=== PATIENT | female | born 1955 | race Caucasian/White ===

== ENCOUNTER 2018-02-08 07:27 | Day surgery (SDC) | payer MEDICAID ==
[~2018-02-08 07:27] MED LIST: Bupivacaine 0.5% 50 ML MDV ONE; Lidocaine 1% with EPINEPHrine 1:100,000 50 ML MDV ONE; Midazolam 1 MG/ML 2 ML SDV ONE; Propofol 200 MG/20 ML SDV ONE; fentaNYL 100 MCG/2 ML SDV ONE
[2018-02-08] MEDS ORDERED: Sodium Chloride 0.9% 1,000 ML IV SCH (08:00)
[2018-02-08] MEDS ORDERED: ceFAZolin 2 GM in Premix Bag 1 BAG IV ONE (08:30)
[2018-02-08] MEDS ORDERED: hydrOXYzine HCl 100 MG/2 ML SDV IM ONE (10:26)
[2018-02-08] MEDS ORDERED: fentaNYL 100 MCG/2 ML SDV IVPUSH ONE (10:26)
--- NOTE | 2018-02-08 12:05 | OR ---
DATE OF PROCEDURE: 02/08/2018 PROCEDURE: Biopsy of left axillary mass, approximately 3 cm. COMPLICATIONS: None. AGENT LICENSING CLERK: None. ANESTHESIA: MAC/local. INDICATIONS: This is a pleasant 63-year-old female with a 5-mm left breast mass and a large axillary mass. The original plan was to biopsy the breast mass in conjunction with the axillary mass. Unfortunately, ultrasound was unable to locate the 5-mm mass. Therefore, this will be sent for stereotactic breast biopsy. Of note, no attempts or introduction of devices were introduced into the left breast. Therefore, the architecture of left breast was not distorted. DESCRIPTION OF PROCEDURE: The patient was placed in supine position. 11 megahertz ultrasound probe was used to interrogate the left breast. This 5-mm mass, that was described in previous ultrasound and mammogram, was unable to be definitively identified/verified. The semiconductor lab technician who performed this procedure was not the original semiconductor lab technician. Therefore, this could not be definitively verified. The left axillary mass was identified readily, and this was biopsied using core biopsy x2. This was performed by anesthetizing the skin and nicked with 11 blade, and the vacuum- assisted biopsy gun was introduced and fired through the medial and superior aspects of this. A clip was then placed within this axillary mass. Direct pressure was held for 10 minutes. Dermabond was applied. The patient tolerated the procedure well. Bravo Riojas MD /[id number]
== END 2018-02-08 10:35 | disposition home or self-care (01) ==
LOC: JP.SDS 07:27
PROVIDERS: ATTEND Surgery
DX: R22.9 Localized swelling, mass and lump, unspecified (principal); N63.20 Unspecified lump in the left breast, unspecified quadrant; E66.9 Obesity, unspecified; E78.5 Hyperlipidemia, unspecified; K21.9 Gastro-esophageal reflux disease without esophagitis; G47.33 Obstructive sleep apnea (adult) (pediatric); Z99.89 Dependence on other enabling machines and devices
CPT/HCPCS: 10035; 38505; 76998; J0690; J2250; J2704; J3010; J7030; 88305; 88341; 88342